=== PATIENT | female | born 1955 | race Hispanic/Latino ===

== ENCOUNTER → 2021-09-04 | Outpatient (CLI) | payer MEDICARE | END | disposition home or self-care (01) | LOC: RAH 16:00 | PROVIDERS: ATTEND Internal Medicine | DX: M25.762 Osteophyte, left knee (principal); M25.562 Pain in left knee | CPT/HCPCS: 73562 ==

== ENCOUNTER → 2021-09-17 | Outpatient (CLI) | payer MEDICARE | END | disposition home or self-care (01) | LOC: RAH 09:55 | PROVIDERS: ATTEND Internal Medicine | DX: M79.662 Pain in left lower leg (principal); R60.0 Localized edema | CPT/HCPCS: 93971 ==

== ENCOUNTER → 2022-01-09 | Outpatient (CLI) | payer MEDICARE | END | disposition home or self-care (01) | LOC: RAH 14:32 | PROVIDERS: ATTEND Nurse Practitioner | DX: M17.12 Unilateral primary osteoarthritis, left knee (principal); M23.92 Unspecified internal derangement of left knee; M25.462 Effusion, left knee | CPT/HCPCS: 73721 ==

== ENCOUNTER → 2022-03-24 | Outpatient (CLI) | payer MEDICARE ==
[~2022-03-24] MED LIST: LEVO75CA5 PO; LOSA50TA64 PO; NITR0.4T50 SL; PRAV20TA4 PO
[2022-03-24 13:05] LABS: HEMATOCRIT 40.2 % (36-48); MEAN CORPUSCULAR HEMOGLOBIN 30.3 pg (27.0-33.0); MEAN CORPUSCULAR HGB CONC 33.1 g/dL (32.0-36.0); MEAN CORPUSCULAR VOLUME 91.6 fL (79-99); PLATELET COUNT (AUTO) 242 K/uL (130-400); RED BLOOD CELL COUNT(AUTO) 4.39 MIL/uL (4.00-5.50); RED CELL DISTRIBUTION WIDTH 12.4 % (11.0-15.5); WHITE BLOOD COUNT (AUTO) 5.7 K/uL (4.8-10.8)
[2022-03-24 13:35] LABS: ALBUMIN 4.1 g/dL (3.5-5.0); CREATININE 0.7 mg/dL (0.5-1.5); POTASSIUM 4.2 mmol/L (3.5-5.1); TOTAL PROTEIN, SERUM 7.6 g/dL (6.0-8.3)
[2022-03-24 14:18] LABS: EOSINOPHILS % (MANUAL) 1 % (1-6); LYMPHOCYTES % (MANUAL) 37 % (22-44); MAN.DIFF COMMENT-IMPRESSION MANUAL DIFFERENTIAL; MONOCYTES % (MANUAL) 6 % (2-9); PLATELET MORPHOLOGY COMMENT ADEQUATE; SEGMENTED NEUTROPHILS % 56 % (40-70)
[2022-03-24 14:41] LABS: B-TYPE NATRIURETIC PEPTIDE 13 pg/mL (0-100)
== END | disposition home or self-care (01) ==
LOC: LAB 11:53
PROVIDERS: ATTEND Internal Medicine
DX: I20.9 Angina pectoris, unspecified (principal)
CPT/HCPCS: 36415; 80053; 83880; 84484; 85025

== ENCOUNTER 2022-04-10 21:36 | Emergency (ER) | payer MEDICARE ==
[~2022-04-10] VITALS: Ht 154.9 cm; Wt 69.9 kg
[~2022-04-10 21:36] MED LIST changes: +AEC81 PO; +ATOR40TA69 PO; +CLOP-31 PO; +METO25 PO; -PRAV20TA4 PO
[2022-04-10 21:43] VITALS: BP 131/68
[2022-04-10] MEDS ORDERED: DIPH-1242 PO (23:16)
== END 2022-04-10 23:38 | disposition home or self-care (01) ==
LOC: EDH 21:36
DX: L29.9 Pruritus, unspecified (principal); L25.9 Unspecified contact dermatitis, unspecified cause; L90.5 Scar conditions and fibrosis of skin; I10 Essential (primary) hypertension; E78.00 Pure hypercholesterolemia, unspecified; E03.9 Hypothyroidism, unspecified; Z79.01 Long term (current) use of anticoagulants; Z79.82 Long term (current) use of aspirin; Z79.899 Other long term (current) drug therapy
CPT/HCPCS: 99282

== ENCOUNTER 2022-11-08 13:43 | Emergency (ER) | payer MEDICARE ==
[~2022-11-08] VITALS: Ht 154.9 cm; Wt 65.8 kg
[~2022-11-08 13:43] MED LIST changes: +DIPH-1242 PO
[2022-11-08] MEDS ORDERED: ONDANSETRON ODT 4MG TAB SL ONE (14:30)
[2022-11-08] MEDS ORDERED: LIDO30CR20 TP (14:30)
[2022-11-08] MEDS ORDERED: HYDROCODONE/ACETAMINOPHEN 5/325 MG TAB PO ONE (14:30)
[2022-11-08] MEDS ORDERED: NITR30OI6 RC (14:30)
[2022-11-08 15:24] VITALS: BP 138/63; PULSE 54; RESP 17; O2SAT 98
== END 2022-11-08 15:27 | disposition home or self-care (01) ==
LOC: EDH 13:43
DX: K64.9 Unspecified hemorrhoids (principal); K60.2 Anal fissure, unspecified; I10 Essential (primary) hypertension; E78.00 Pure hypercholesterolemia, unspecified; E03.9 Hypothyroidism, unspecified; Z79.82 Long term (current) use of aspirin; Z79.899 Other long term (current) drug therapy; Z98.890 Other specified postprocedural states

== ENCOUNTER → 2022-11-27 | Outpatient (CLI) | payer MEDICARE ==
[~2022-11-27] MED LIST changes: +LIDO30CR20 TP; +NITR30OI6 RC
== END | disposition home or self-care (01) ==
LOC: SHCH 14:00
PROVIDERS: ATTEND Internal Medicine Cardiovascular Disease
DX: I87.2 Venous insufficiency (chronic) (peripheral) (principal); I87.1 Compression of vein; I73.9 Peripheral vascular disease, unspecified
CPT/HCPCS: 93925; 93970

== ENCOUNTER 2023-03-10 05:57 | Day surgery (SDC) | payer MEDICARE ==
[2023-03-09 09:36] LABS: BASOPHILS # (AUTO) 0.03 K/uL (0.00-0.20); BASOPHILS % (AUTO) 0.7 % (0.0-5.0); EOSINOPHILS # (AUTO) 0.07 K/uL (0.00-0.70); EOSINOPHILS % (AUTO) 1.7 % (0.0-8.0); HEMATOCRIT 39.8 % (36-48); IMMATURE GRANULOCYTE ABSOLUTE 0.01 K/uL (0-1); LYMPHOCYTES # (AUTO) 1.4 K/uL (1.0-4.8); LYMPHOCYTES % (AUTO) 32.5 % (21.0-51.0); MEAN CORPUSCULAR HEMOGLOBIN 30.5 pg (27.0-33.0); MEAN CORPUSCULAR HGB CONC 33.4 g/dL (32.0-36.0); MEAN CORPUSCULAR VOLUME 91.3 fL (79-99); MONOCYTES # (AUTO) 0.5 K/uL (0.1-1.0); MONOCYTES % (AUTO) 11.3 % (3.0-13.0); NEUTROPHILS # (AUTO) 2.2 K/uL (1.8-7.7); NEUTROPHILS % (AUTO) 53.6 % (40.0-77.0); PLATELET COUNT (AUTO) 195 K/uL (130-400); RED BLOOD CELL COUNT(AUTO) 4.36 MIL/uL (4.00-5.50); RED CELL DISTRIBUTION WIDTH 12.8 % (11.0-15.5); WHITE BLOOD COUNT (AUTO) 4.2 K/uL (4.8-10.8)
[2023-03-09 09:39] VITALS: BP 152/62; PULSE 56; RESP 16
[2023-03-09 09:48] LABS: ALBUMIN 3.8 g/dL (3.5-5.0); BILIRUBIN,TOTAL 0.5 mg/dL (0.2-1.0); CREATININE 0.7 mg/dL (0.5-1.5); POTASSIUM 4.6 mmol/L (3.5-5.1); TOTAL PROTEIN, SERUM 7.1 g/dL (6.0-8.3)
[2023-03-09 10:04] LABS: INR 0.94 (0.85-1.15); PROTHROMBIN TIME 10.9 SEC (9.6-11.6)
[2023-03-09 10:05] LABS: PARTIAL THROMBOPLASTIN TIME 28.9 SEC (26.3-35.5)
[~2023-03-10] VITALS: Ht 154.9 cm; Wt 66.0 kg
[2023-03-10] VITALS (18 sets, daily range): BP systolic 97–144; BP diastolic 36–72; PULSE 67–87; RESP 11–21
[~2023-03-10 05:57] MED LIST changes: +CENTRUM MULTIVITAMIN PO; +DILTIAZEM TD; -DIPH-1242 PO; +DOCU-116 PO; -LEVO75CA5 PO; +LEVO88TA7 PO; -LIDO30CR20 TP; +METAMUCIL PO; -METO25 PO; +METO25TA6 PO; -NITR30OI6 RC; +[UNRECOGNIZED DRUG - CODE] PO
[2023-03-10] MEDS ORDERED: LACTATED RINGERS 1000ML 1,000 ML IV ONE (06:24)
[2023-03-10] MEDS ORDERED: MEROPENEM 1 GM VIAL ONE (06:25)
[2023-03-10] MEDS ORDERED: ACETAMINOPHEN 1,000 MG/100 ML VIAL IV ONE (07:17)
[2023-03-10] MEDS ORDERED: LIDOCAINE PF 100MG/5ML (2%) SYRINGE 5ML ONE (07:25)
[2023-03-10] MEDS ORDERED: FENTANYL CITRATE PF 50 MCG/1 ML 2ML VIAL ONE (07:26)
[2023-03-10] MEDS ORDERED: PROPOFOL 10 MG/ML 20ML VIAL IV ONE (07:26)
[2023-03-10] MEDS ORDERED: BUPIVACAINE/PF 0.25% 30ML VIAL IJ ONE ×2 (07:34→08:09)
[2023-03-10] MEDS ORDERED: LIDOCAINE 2%-EPI 1:200,000 20 ML VIAL IJ ONE ×2 (07:34→08:10)
[2023-03-10] MEDS ORDERED: ONDANSETRON 4MG INJ ONE (07:35)
[2023-03-10] MEDS ORDERED: DEXAMETHASONE SOD PHOSPHATE 10MG/ML 1ML VIAL ONE (07:35)
[2023-03-10] MEDS ORDERED: EPHEDRINE SULFATE 50 MG/ML AMPULE ONE (08:15)
[2023-03-10] MEDS ORDERED: GLYCOPYRROLATE 1 MG/5 ML SYRINGE ONE (08:18)
[2023-03-10] MEDS ORDERED: KETOROLAC 30MG VIAL (30MG/ML) ONE (08:31)
== END 2023-03-10 10:35 | disposition home or self-care (01) ==
LOC: DAH 05:57
PROVIDERS: ATTEND Surgery
DX: K60.0 Acute anal fissure (principal); K62.89 Other specified diseases of anus and rectum; K59.00 Constipation, unspecified; I10 Essential (primary) hypertension; E78.5 Hyperlipidemia, unspecified; E03.9 Hypothyroidism, unspecified; Z86.73 Personal history of transient ischemic attack (TIA), and cerebral infarction without residual deficits; Z95.5 Presence of coronary angioplasty implant and graft; Z79.82 Long term (current) use of aspirin; Z80.3 Family history of malignant neoplasm of breast; Z79.890 Hormone replacement therapy; Z79.899 Other long term (current) drug therapy; Z98.49 Cataract extraction status, unspecified eye; Z98.891 History of uterine scar from previous surgery; Z98.890 Other specified postprocedural states; Z79.01 Long term (current) use of anticoagulants; Z80.0 Family history of malignant neoplasm of digestive organs
CPT/HCPCS: 80053; 85025; 85610; 85730; 36415; 93005; 46200; A6260; A4663; J7120 ×2; A4344; J3010; J3490 ×4; J1100; J0665 ×2; J2001; J2704; J2405; J2185; A4649; A4930 ×2; A4215; A4223; A4222; A4221; J1885

== ENCOUNTER → 2024-02-16 | Outpatient (CLI) | payer MEDICARE ==
--- NOTE | 2024-02-17 07:18 | HMCSR ---
APPROVED REPORT Laterality: Bilateral Doppler Spectral Velocity Analysis PSV / EDVPSV / EDV ECA (R) 89 / cm/sECA (L) 81 / cm/s dICA (R) 114 / 41 cm/sdICA (L) 118 / 42 cm/s Viola (R) 88 / 31 cm/smICA (L) 102 / 35 cm/s pICA (R) 64 / 19 cm/spICA (L) 83 / 26 cm/s dCCA (R) 61 / 15 cm/sdCCA (L) 91 / 25 cm/s mCCA (R) 67 / 19 cm/smCCA (L) 75 / 21 cm/s pCCA (R) 67 / 16 cm/spCCA (L) 103 / 23 cm/s Vert (R) 70 / cm/sVert (L) 55 / cm/s Subl. (R) 125 / cm/sSubl. (L) 121 / cm/s ICA/CCA 1.70ICA/CCA 1.15 Technologist Impression Minimal plaque noted in the bilateral carotid arteries without hemodynamic significance. The bilateral vertebral arteries reflect antegrad flow. Conclusion Minimal plaque noted in the bilateral carotids, without hemodynamic significance. Bilateral vertebral arteries appear antegrade. Conclusion Minimal plaque noted in the bilateral carotids, without hemodynamic significance. Bilateral vertebral arteries appear antegrade.
== END | disposition home or self-care (01) ==
LOC: SHCH 11:38
PROVIDERS: ATTEND Internal Medicine Cardiovascular Disease
DX: I65.23 Occlusion and stenosis of bilateral carotid arteries (principal)
CPT/HCPCS: 93880

== ENCOUNTER → 2024-07-19 | Outpatient (CLI) | payer MEDICARE ==
--- NOTE | 2024-07-19 11:17 | HMCIMG ---
BONE DENSITOMETRY: HISTORY: Age-related osteoporosis without current pathological fracture COMPARISON: None available FINDINGS: BMD measured at AP spine L1-L4 is 0.969 g/cm2 with a T-score of 1.4 Bone density is up to 10% below young normal. This patient is considered normal according to WHO criteria. Fracture risk is low. BMD measured at Left Femoral Neck is 0.800 g/cm2 with a T-score of -0.6 Bone density is up to 10% below young normal. This patient is considered normal according to WHO criteria. Fracture risk is low. BMD measured at Left Femoral Total is 0.989 g/cm2 with a T-score of 0.2 Bone density is up to 10% below young normal. This patient is considered normal according to WHO criteria. Fracture risk is low. IMPRESSION: Normal bone mineral density.
== END | disposition home or self-care (01) ==
LOC: RAH 07:52
PROVIDERS: ATTEND Internal Medicine
DX: M81.0 Age-related osteoporosis without current pathological fracture (principal)
CPT/HCPCS: 77080